=== PATIENT | female | born 1950 | race Caucasian/White ===

== ENCOUNTER → 2017-09-23 | Outpatient (CLI) | payer OTHER ==
[~2017-09-23] MED LIST: AMOXICILLIN500 M1 PO; ASPIR 8181 M1 PO; Amoxicillin PO; BUTALB-APAP-CA1 EACH PO; CYCLOBENZAPRINE10 MG PO; DIFLUCAN150 MG PO; ELAVIL10 MG PO; Ecotrin PO; FUROSEMIDE20 MG PO; Fioricet,Esgic,Repan PO; LASIX20 MG PO; LEVOTHYROXINE50 MCG PO; METOPROLOL SUCC25 MG PO; METOPROLOL TART25 MG PO; NORVASC2.5 MG PO; NYSTATIN-TRIAMC15 GM TP; PREDNISOLONE 0.12% LEFT EYE; Protonix PO; RESTASIS 01 DROP/0.4 BOTH EYES; VALTREX50 MG/ML PO
== END | disposition home or self-care (01) ==
LOC: RAD 14:30
DX: J34.89 Other specified disorders of nose and nasal sinuses (principal)
CPT/HCPCS: 70450

== ENCOUNTER → 2017-10-24 | Outpatient (CLI) | payer OTHER | END | disposition home or self-care (01) | LOC: RAD 14:00 | DX: M71.22 Synovial cyst of popliteal space [Baker], left knee (principal); M79.89 Other specified soft tissue disorders; Z86.718 Personal history of other venous thrombosis and embolism | CPT/HCPCS: 93971 ==

== ENCOUNTER 2018-06-02 08:49 | Emergency (ER) | payer OTHER ==
[~2018-06-02] VITALS: Ht 152.4 cm; Wt 79.6 kg
[~2018-06-02 08:49] MED LIST changes: +NORVASC5 MG PO
[2018-06-02 10:00] LABS: HEMATOCRIT 46.7 % (36.0-46.0); HEMOGLOBIN 16.5 G/DL (11.9-15.5); MCH 32.8 PG (29.0-34.0); MCHC 35.3 G/DL (30.0-36.0); MCV 92.8 FL (83-99); PLATELET COUNT 200 K/uL (156-360); RBC DIS.WIDTH-CV 11.8 % (11.8-14.6); RBC DIS.WIDTH-SD 40.3 % (39-53); RED BLOOD COUNT 5.03 M/uL (3.80-5.20)
[2018-06-02 10:07] LABS: APPEARANCE CLEAR ((CLEAR)); BILIRUBIN NEGATIVE; BLOOD NEGATIVE; COLOR COLORLESS ((YELLOW)); GLUCOSE (STRIP) NEGATIVE; KETONES NEGATIVE; LEUKOCYTES SMALL; NITRITE NEGATIVE; PROTEIN (STRIP) NEGATIVE; SPECIFIC GRAVITY 1.003 (1.000-1.030); UROBILINOGEN 0.2 MG/DL (0.2-1.0)
[2018-06-02 10:09] LABS: CHLORIDE 107 mEq/L (99-109); POTASSIUM 4.7 mEq/L (3.7-5.4); SODIUM 142 mEq/L (136-147)
[2018-06-02 10:10] LABS: GLUCOSE 139 mg/dL (70-99)
[2018-06-02 10:11] LABS: BACTERIA RARE /HPF; EPITHELIAL CELLS RARE /HPF; MUCUS TRACE /LPF; RED BLOOD CELLS 0-5 /HPF (0-5); UCUL ADDED? NO; WHITE BLOOD CELLS 0-5 /HPF (0-5)
[2018-06-02 10:14] LABS: CREATININE 0.9 mg/dL (0.6-1.3); GFR ESTIMATE (CALCULATED) > 59 mL/min/
[2018-06-02 10:15] LABS: UREA NITROGEN (BUN) 11 mg/dL (9-23)
[2018-06-02] MEDS ORDERED: BACLOFEN10 MG PO (12:43)
[2018-06-02] MEDS ORDERED: LIDODERM 5% P1 PATCH TD (12:43)
[2018-06-02] MEDS ORDERED: MOTRIN800 MG PO (12:43)
[2018-06-02 12:56] VITALS: BP 155/89
== END 2018-06-02 12:57 | disposition home or self-care (01) ==
LOC: EME 08:49
PROVIDERS: Nurse Practitioner Family
DX: M79.652 Pain in left thigh (principal); I10 Essential (primary) hypertension; K21.9 Gastro-esophageal reflux disease without esophagitis; Z85.528 Personal history of other malignant neoplasm of kidney; Z90.5 Acquired absence of kidney; Z79.82 Long term (current) use of aspirin
CPT/HCPCS: 80048; 81003; 85027; 93971; 99281; 99284; J1885